=== PATIENT | female | born 1935 | race Caucasian/White ===

== ENCOUNTER 2016-10-14 11:32 | Emergency (ER) | payer OTHER ==
[~2016-10-14] VITALS: Ht 144.8 cm; Wt 48.1 kg
[2016-10-14 11:43] VITALS: BP 147/79
--- NOTE | 2016-10-14 11:52 | ED HAND/WRIST INJURY COMPLAINT ---
History of Present Illness General Chief Complaint: Laceration Procedure Stated Complaint: LAC TO RIGHT HAND 4TH DIGIT Source: patient, family Exam Limitations: no limitations Vital Signs & Intake/Output Vital Signs & Intake/Output ED Intake and Output 10/15 0000 10/14 1200 Intake Total Output Total Balance Patient 106 lb Weight Allergies Coded Allergies: No Known Allergies (10/14/16) Triage Note: PT TO ED FOR LAC TO RIGHT HAND FROM BROKEN GLASS. UNSURE OF LAST TETANUS SHOT. BLEEDING CONTROLLED. LAC TO PALM NOTED. Triage Nurses Notes Reviewed? yes HPI: Patient is a 81-year-old female presents complaining of laceration to her right hand. Laceration occurred approximately one hour ago. Patient was pouring syrup into a glass container when the glass container broke and the sharp and of the container punctured her right hand. Pain is mild, worsens with palpation. Patient is right-hand dominant. Patient is unsure of her last tetanus immunization. Patient denies numbness, weakness, decreased range of motion. (MONA SANDS) Past History Travel History Traveled to [place] past 21 day No Medical History Any Pertinent Medical History? see below for history Neurological: dementia Cardiovascular: hypertension Endocrine: hypothyroidism Surgical History Surgical History: non-contributory Psychosocial History What is your primary language Palauan Tobacco Use: Never used ETOH Use: denies use Illicit Drug Use: denies illicit drug use Family History Hx Contributory? No (MONA SANDS) Review of Systems Review of Systems Constitutional: Reports: no symptoms. Musculoskeletal: Reports: see HPI. Skin: Reports: see HPI. Neurological/Psychological: Denies: numbness, paresthesia. Hematologic/Endocrine: Reports: bleeding (from wound). Immunologic/Allergic: Denies: splenectomy. (MONA SANDS) Physical Exam Physical Exam General Appearance: well developed/nourished, alert, awake Head: atraumatic, normal appearance Eyes: Bilateral: normal appearance, PERRL, EOMI. Ears, Nose, Throat: hearing grossly normal Neck: normal inspection, supple, full range of motion Cardiovascular/Respiratory: no respiratory distress Back: normal inspection, normal range of motion Wrist Right: normal range of motion, normal inspection Hand Left: normal inspection, normal range of motion Hand Right: 1.5 cm laceration volar surface of the right hand just proximal to the fourth MCP joint. Full range of motion of allfingers. No visible or functional tendon deficit. Capillary refill normal. Sensation to light touch all fingers grossly intact. Neurologic/Tendon: normal sensation, normal motor functions, normal tendon functions Skin: warm/dry (MONA SANDS) Progress Differential Diagnosis: laceration, tendon laceration, foreign body, fracture Plan of Care: Current Medications Sig/Romaine Start time Last Medication Dose Stop Time Status Admin Tetanus/Diphtheria 0.5 ML ONCE ONE 10/14 1200 UNVr Toxoids Adsorbed 10/14 1201 (Decavac) No visible or palpable foreign bodies on exam. I discussed with the patient and her daughter that there remains a small chance that there is a foreign body in the wound and to monitor closely for any signs of infection. Discussed with Dr. Mccartney. (MONA SANDS) Departure Departure Time of Disposition: 1215 Disposition: HOME OR SELF CARE Condition: Stable Clinical Impression Primary Impression: Laceration of hand, right Qualifiers: Encounter type: initial encounter Qualified Code: S61.411A - Laceration without foreign body of right hand, initial encounter Additional Instructions: Return to the emergency department 10 days for suture removal. Change the dressing daily. Bacitracin with the dressing change for the first 3 days. Return to emergency department immediately if pus from the wound, redness spreading from the wound, fevers, increasing pain, or worsening of symptoms. Departure Forms: Customer Survey General Discharge Information (MONA SANDS) PA/AVIONICS INTEGRATION ENGINEER Co-Sign Statement Statement: ED Attending supervision documentation- [] I saw and evaluated the patient. I have also reviewed all the pertinent lab results and diagnostic results. I agree with the findings and the plan of care as documented in the PA's/AVIONICS INTEGRATION ENGINEER's documentation. [X] I have reviewed the ED Record and agree with the PA's/AVIONICS INTEGRATION ENGINEER's documentation. [] Additions or exceptions (if any) to the PAs/AVIONICS INTEGRATION ENGINEER's note and plan are summarized below: [] (KRISTIN LEE,ROSSANA) Procedures Laceration/Wound Repair Progress: Area prepped with Betadine. 1% lidocaine 2 mL injected to the wound margins. Irrigated with 350 mL of sterile water. Closely examined with no visible foreign bodies or tendon lacerations. 4 simple interrupted 5-0 monosof sutures placed. Well tolerated by patient. (MONA SANDS)
== END 2016-10-14 12:21 ==
LOC: ERH 11:32
DX: S61.411A Laceration without foreign body of right hand, initial encounter (principal); W25.XXXA Contact with sharp glass, initial encounter